=== PATIENT | female | born 1970 | race Native Hawaiian/Other Pacific Islander ===

== ENCOUNTER 2021-03-29 07:40 | Outpatient (CLI) | payer OTHER ==
[2021-03-29 07:59] LABS: PLATELET COUNT 273 K/uL (152-353)
== END 2021-03-29 18:55 | disposition home or self-care (01) ==
LOC: LABW 07:40
PROVIDERS: ATTEND Nurse Practitioner Family
DX: R50.9 Fever, unspecified (principal); R53.83 Other fatigue
CPT/HCPCS: 36415; 80053; 81000; 85027; 85652; 86141; 87502; 87635; 87651; U0003

== ENCOUNTER 2021-04-15 10:15 | Outpatient (CLI) | payer OTHER ==
[2021-04-23 10:08] LABS: POTASSIUM 4.6 mmol/L (3.6-5.2)
== END 2021-04-15 17:00 | disposition home or self-care (01) ==
LOC: LABW 10:15
PROVIDERS: ATTEND Internal Medicine
DX: R74.8 Abnormal levels of other serum enzymes (principal)
CPT/HCPCS: 36415; 80053